=== PATIENT | male | born 1990 | race Hispanic/Latino ===

== ENCOUNTER 2020-05-23 00:15 | Emergency (ER) | payer SELFPAY ==
[~2020-05-23] VITALS: Ht 172.7 cm; Wt 69.9 kg
== END 2020-05-23 01:07 | disposition home or self-care (01) ==
LOC: ER 00:41
DX: F13.10 Sedative, hypnotic or anxiolytic abuse, uncomplicated (principal); F17.210 Nicotine dependence, cigarettes, uncomplicated
CPT/HCPCS: 99282